=== PATIENT | female | born 1950 | race Caucasian/White ===

== ENCOUNTER 2018-07-17 16:36 | Inpatient (IN) | payer OTHER ==
[~2018-07-17] VITALS: Ht 162.6 cm; Wt 65.3 kg
--- NOTE | ~2018-07-17 | EKG ---
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: NESS : 1950 Requested By: Rocky Christian Order Number: [id number] MD: Shon Magaña Measurements Intervals [place] Rate: 147 P: -90 [place]: 107 QRS: 105 QRSD: 86 T: 32 QT: 319 QTc: 499 Interpretive Statements Sinus or ectopic atrial tachycardia Right axis deviation Borderline low voltage, extremity leads Borderline prolonged QT interval No previous ECGs available for comparison Electronically Signed On 07-18-2018 8:11:07 DARKLIGHT INSPECTOR by Shon Magaña [email or web address] <ELECTRONICALLY SIGNED> By: Shon Magaña MD, [facility] 07/18/18 0811 D: [id number] Shon Magaña MD, FACC /EPI
[~2018-07-17 16:36] MED LIST: ATIVAN1 MG PO; CALTRATE-600 W1 EACH PO; CARDIZEM CD180 MG PO; CHEWABLE PRENA1 EACH PO; CHLORDIAZEPOXID10 MG PO; CYMBALTA60 MG PO; DESYREL50 MG PO; FLEXERIL PO; KLONOPIN1 MG PO; ONDANSETRON HCL4 M2 PO; PRAVACHOL20 MG PO; PROVENTIL IH; RESTORIL15 MG PO; VITAMIN B-1100 M2 PO; VITAMIN B-1100 MG PO; ZOLOFT PO; [UNRECOGNIZED DRUG - OTHER]
[2018-07-17] MEDS ORDERED: LEXAPRO20 MG PO (16:57)
[2018-07-17] MEDS ORDERED: GABAPENTIN 100100 MG PO (16:57)
[2018-07-17] MEDS ORDERED: REVIA 50 MG TAB50 M1 PO (16:58)
[2018-07-17 16:59] LABS: URINE BILIRUBIN NEGATIVE (Negative); URINE BLOOD TRACE (Negative); URINE CLARITY CLEAR; URINE COLOR YELLOW; URINE GLUCOSE-RANDOM* NEGATIVE (Negative); URINE KETONES 1+ (Negative); URINE LEUKOCYTES-REFLEX TRACE (Negative); URINE NITRITE-REFLEX NEGATIVE (Negative); URINE PROTEIN (DIPSTICK) NEGATIVE (Negative); URINE UROBILINOGEN 0.2 E.U./dl (0.2-1.0)
[2018-07-17] MEDS ORDERED: RESTORIL15 MG PO (16:59)
[2018-07-17 17:06] LABS: AMP/METHAMP Negative (Negative); BARBITURATES Negative (Negative); BENZODIAZEPINES POSITIVE (Negative); COCAINE Negative (Negative); METHADONE Negative (Negative); OPIATES Negative (Negative); PCP Negative (Negative)
[2018-07-17 17:24] LABS: ABSOLUTE NEUTROPHILS 2.1 thou/uL (1.4-8.2); BASOPHILS 1.1 % (0.0-2.0); EOSINOPHILS 2.5 % (0.0-3.0); HEMATOCRIT 36.7 % (37.0-47.0); HEMOGLOBIN 12.4 gm/dL (12.0-15.0); LYMPHOCYTES 32.4 % (24.0-44.0); MCH 32.3 pg (26.0-34.0); MCHC 33.9 g/dL (28.0-37.0); MCV 95.2 fL (80.0-100.0); MONOCYTES 5.4 % (1.0-8.0); POLYS 58.6 % (36.0-66.0); RBC 3.85 mil/uL (4.20-5.00); RDW 14.2 % (10.5-14.5); WBC 3.5 thou/uL (4.0-11.0)
[2018-07-17 17:27] LABS: CALCIUM 9.8 mg/dL (8.5-10.1); CREATININE 0.9 mg/dL (0.6-1.0); POTASSIUM 4.9 mmol/L (3.5-5.1)
[2018-07-17 17:33] LABS: ALBUMIN 3.8 g/dL (3.4-5.0); MAGNESIUM 2.3 mg/dL (1.8-2.4); TOTAL BILIRUBIN 0.5 mg/dL (<0.1-1.0); TOTAL PROTEIN 7.8 g/dL (6.4-8.2)
[2018-07-17 18:18] LABS: PLATELET COUNT 25 thou/uL (150-400)
[2018-07-17 21:11] VITALS: BP 126/60
[2018-07-17 21:46] VITALS: BP 140/68
[2018-07-17 23:14] VITALS: BP 159/78
[2018-07-17 23:22] LABS: PHOSPHORUS 4.3 mg/dL (2.5-4.9)
[2018-07-17 23:50] LABS: FOLIC ACID 23.1 ng/mL (8.6-58.9)
[2018-07-18 04:05] LABS: HEMATOCRIT 33.7 % (37.0-47.0); HEMOGLOBIN 11.8 gm/dL (12.0-15.0); MCH 32.9 pg (26.0-34.0); MCHC 35.1 g/dL (28.0-37.0); MCV 93.7 fL (80.0-100.0); RBC 3.6 mil/uL (4.20-5.00); RDW 13.7 % (10.5-14.5); WBC 3.7 thou/uL (4.0-11.0)
[2018-07-18 04:21] LABS: ANION GAP 9 mmol/L (7-16); BUN 11 mg/dL (7-18); CALCIUM 8.1 mg/dL (8.5-10.1); CHLORIDE 103 mmol/L (98-107); CHOLESTEROL 254 mg/dL (<200); CO2 29 mmol/L (21-32); CREATININE 0.7 mg/dL (0.6-1.0); GLUCOSE 103 mg/dL (74-106); HDL CHOLESTEROL 100 mg/dL (>40); LDL CHOLESTEROL 145 mg/dL (<100); SODIUM 141 mmol/L (136-145); TC:HDL 2.5 Ratio (Not establshd); TRIGLYCERIDE 45 mg/dL (<150); VLDL 9 mg/dL (<40)
[2018-07-18 04:23] LABS: POTASSIUM 3.9 mmol/L (3.5-5.1); SERUM ASSESSMENT Clear
[2018-07-18 05:10] VITALS: BP 143/85
[2018-07-18 07:29] VITALS: BP 134/84
[2018-07-18 11:51] VITALS: BP 122/74
[2018-07-18 15:56] VITALS: BP 145/98
[2018-07-18 17:43] VITALS: BP 153/92
[2018-07-18 20:32] VITALS: BP 137/89
[2018-07-19 04:00] VITALS: BP 125/76
[2018-07-19 06:32] LABS: CREATININE 0.8 mg/dL (0.6-1.0); MAGNESIUM 2.1 mg/dL (1.8-2.4); PHOSPHORUS 3.8 mg/dL (2.5-4.9); POTASSIUM 3.8 mmol/L (3.5-5.1)
[2018-07-19 07:10] VITALS: BP 147/80
[2018-07-19 11:38] VITALS: BP 140/86
[2018-07-19 16:25] VITALS: BP 140/78
[2018-07-19 20:05] VITALS: BP 130/85
[2018-07-20 04:10] VITALS: BP 121/70
[2018-07-20 07:36] VITALS: BP 117/73
[2018-07-20 12:33] VITALS: BP 141/87
[2018-07-20 16:21] VITALS: BP 125/75
[2018-07-20 19:38] VITALS: BP 127/62
[2018-07-21 04:40] VITALS: BP 120/68
[2018-07-21 07:41] VITALS: BP 113/61
[2018-07-21 11:31] VITALS: BP 128/76
[2018-07-21 13:30] VITALS: BP 128/76
== END 2018-07-21 13:43 | disposition home or self-care (01) | DRG 897 ==
LOC: ER 16:36 → EROBS 21:19 → 3W 21:19
PROVIDERS: Nurse Practitioner Family; Physician Assistant
DX: F10.120 Alcohol abuse with intoxication, uncomplicated (principal); R00.0 Tachycardia, unspecified; F32.9 Major depressive disorder, single episode, unspecified; E78.5 Hyperlipidemia, unspecified; J45.909 Unspecified asthma, uncomplicated; Z87.828 Personal history of other (healed) physical injury and trauma; Z79.899 Other long term (current) drug therapy; Z88.6 Allergy status to analgesic agent; Z88.1 Allergy status to other antibiotic agents; Z88.0 Allergy status to penicillin; Z88.2 Allergy status to sulfonamides; Z88.8 Allergy status to other drugs, medicaments and biological substances; Z80.49 Family history of malignant neoplasm of other genital organs; Z82.49 Family history of ischemic heart disease and other diseases of the circulatory system; Z71.41 Alcohol abuse counseling and surveillance of alcoholic
CPT/HCPCS: 10879

== ENCOUNTER → 2020-03-15 | Outpatient (CLI) | payer OTHER ==
[~2020-03-15] MED LIST changes: +GABAPENTIN 100100 MG PO; +LEXAPRO20 MG PO; +REVIA 50 MG TAB50 M1 PO
== END ==
LOC: BC 08:35
PROVIDERS: ATTEND Internal Medicine
DX: Z12.31 Encounter for screening mammogram for malignant neoplasm of breast (principal)

== ENCOUNTER → 2020-03-21 | Outpatient (CLI) | payer OTHER | LOC: SJCVC 14:38 | PROVIDERS: ATTEND Internal Medicine Cardiovascular Disease | DX: R00.0 Tachycardia, unspecified (principal); R94.31 Abnormal electrocardiogram [ECG] [EKG]; I25.10 Atherosclerotic heart disease of native coronary artery without angina pectoris; E78.00 Pure hypercholesterolemia, unspecified; J45.909 Unspecified asthma, uncomplicated; Z79.899 Other long term (current) drug therapy; Z82.49 Family history of ischemic heart disease and other diseases of the circulatory system; Z87.891 Personal history of nicotine dependence ==

== ENCOUNTER → 2020-04-22 | Outpatient (CLI) | payer OTHER | LOC: SJCVCIMAG 09:38 | PROVIDERS: ATTEND Internal Medicine Cardiovascular Disease | DX: I08.1 Rheumatic disorders of both mitral and tricuspid valves (principal) ==

== ENCOUNTER → 2020-05-11 | Outpatient (CLI) | payer OTHER | LOC: SJCVCIMAG 04-13 14:19 | PROVIDERS: ATTEND Internal Medicine Cardiovascular Disease | DX: I47.1 Supraventricular tachycardia (principal); I25.10 Atherosclerotic heart disease of native coronary artery without angina pectoris; E78.5 Hyperlipidemia, unspecified; E78.00 Pure hypercholesterolemia, unspecified; J45.909 Unspecified asthma, uncomplicated; Z87.891 Personal history of nicotine dependence; Z79.899 Other long term (current) drug therapy ==

== ENCOUNTER → 2020-05-16 | Outpatient (CLI) | payer OTHER | LOC: CAT 09:23 | PROVIDERS: ATTEND Internal Medicine Cardiovascular Disease | DX: Z13.6 Encounter for screening for cardiovascular disorders (principal); E78.00 Pure hypercholesterolemia, unspecified; I25.10 Atherosclerotic heart disease of native coronary artery without angina pectoris ==

== ENCOUNTER → 2020-05-23 | Outpatient (CLI) | payer OTHER | LOC: SJCVC 14:18 | PROVIDERS: ATTEND Internal Medicine Cardiovascular Disease | DX: I47.1 Supraventricular tachycardia (principal) ==

== ENCOUNTER → 2020-05-24 | Outpatient (CLI) | payer OTHER | LOC: LAB 07:43 | PROVIDERS: ATTEND Internal Medicine Cardiovascular Disease | DX: Z01.812 Encounter for preprocedural laboratory examination (principal); Z20.828 Contact with and (suspected) exposure to other viral communicable diseases ==

== ENCOUNTER 2020-05-27 06:36 | Inpatient (IN) | payer OTHER ==
[~2020-05-27] VITALS: Ht 162.6 cm; Wt 73.5 kg
[2020-05-27] VITALS (24 sets, daily range): BP systolic 79–113; BP diastolic 35–76
--- NOTE | ~2020-05-27 | EKG ---
[facility] [place] [address] ELECTROCARDIOGRAM REPORT Name: MARLENI SELBY Room #: 215-[facility] M.R.#: [id number] Admission: 05/27/20 Attend Phys: Mani De La Paz MD Discharge: Date of : 52 Report #: [id number] THIS REPORT FOR: cc: Malvin Chapa MD, Ammar MD Epiphany,Gwen CONTRERAS ~ THIS REPORT FOR: //name// [facility] Test Date: 2020-05-27 Test Time: 17:58:45 Pat Name: MARLENI SELBY Department: Room: 215 Gender: F Truck Technician: Imani JOHNSON : 1950 Requested By: Mani De La Paz Order Number: [id number] MD: Measurements Intervals [place] Rate: 144 P: [place]: QRS: 109 QRSD: 85 T: -20 QT: 298 QTc: 461 Interpretive Statements Junctional tachycardia Right axis deviation Borderline low voltage, extremity leads Repolarization abnormality, prob rate related Compared to ECG 07/17/2018 17:04:01 Junctional tachycardia now present Early repolarization now present [email or web address] By: 1758 1758 Epiphany [place]iph[place], [place] /EPI
[2020-05-27] MEDS ORDERED: BACLOFEN 10MG T10 MG PO (07:27)
[2020-05-27] MEDS ORDERED: SUPER THERAVIT1 EACH PO (07:28)
[2020-05-27] MEDS ORDERED: BREO ELLIPTA 11 EACH INH (07:30)
[2020-05-27 07:31] LABS: ABSOLUTE NEUTROPHILS 2.7 thou/uL (1.4-8.2); BASOPHILS 1.2 % (0.0-2.0); EOSINOPHILS 7.2 % (0.0-3.0); HEMATOCRIT 33.1 % (37.0-47.0); HEMOGLOBIN 11.3 gm/dL (12.0-15.0); LYMPHOCYTES 26.3 % (24.0-44.0); MCH 31.5 pg (26.0-34.0); MCHC 34.1 g/dL (28.0-37.0); MCV 92.3 fL (80.0-100.0); MONOCYTES 9.7 % (1.0-8.0); PLATELET COUNT 201 thou/uL (150-400); POLYS 55.6 % (36.0-66.0); RBC 3.59 mil/uL (4.20-5.00); RDW 13.5 % (10.5-14.5); WBC 4.8 thou/uL (4.0-11.0)
[2020-05-27] MEDS ORDERED: TRAZODONE HCL100 MG PO (07:31)
[2020-05-27 07:43] LABS: CALCIUM 9.4 mg/dL (8.5-10.1); CREATININE 1.2 mg/dL (0.6-1.0); POTASSIUM 4.1 mmol/L (3.5-5.1)
[2020-05-27 07:51] LABS: ALBUMIN 3.6 g/dL (3.4-5.0); APTT 25.8 Seconds (24.5-32.8); PROTIME 9.7 Seconds (9.3-11.4); TOTAL BILIRUBIN 0.3 mg/dL (0.2-1.0); TOTAL PROTEIN 7.1 g/dL (6.4-8.2)
--- NOTE | 2020-05-27 10:58 | 2DMMODE ---
[address] [address] 2 D/M-MODE ECHOCARDIOGRAM Name: MARLENI SELBY Room #: REG [facility]#: [id number] Admission: 05/27/20 Attend Phys: Mani De La Paz MD Discharge: Date of : 52 Report #: [id number] THIS REPORT FOR: cc: Malvin Chapa MD, Ammar MD Park, Jin S. MD ~ APPROVED REPORT Study performed: 05/27/2020 10:23:55 EXAM: Comprehensive 2D, Doppler, and color-flow Echocardiogram Patient Location: lab Status: stat BSA: 1.76 BP: 90/53 mmHg Other Information Study Quality: Technically Limited Indications STAT to rule out pericardial effusion Left Ventricle The left ventricle is normal size. There is normal left ventricular wall thickness. The left ventricular systolic function is normal. The left ventricular ejection fraction is within the normal range. LVEF is >55%. Right Ventricle The right ventricle is normal size. The right ventricular systolic function is normal. Atria Left atrium is at the upper limits of normal. Right atrium is dilated. Aortic Valve The aortic valve is normal in structure. Mitral Valve The mitral valve is normal in structure. [address] [address] 2 D/M-MODE ECHOCARDIOGRAM Name: MARLENI SELBY Room #: REG [facility]#: [id number] Admission: 05/27/20 Attend Phys: Mani De La Paz Discharge: Date of : 52 Report #: [id number] Tricuspid Valve The tricuspid valve is normal in structure. Pericardium There is no pericardial effusion. <Conclusion> The left ventricle is normal size. There is normal left ventricular wall thickness. The left ventricular systolic function is normal. The right ventricle is normal size. The aortic valve is normal in structure. The mitral valve is normal in structure. There is no pericardial effusion. <ELECTRONICALLY SIGNED> By: Raymundo Quinn MD 05/27/20 1058 1058 Raymundo Quinn MD /INF
--- NOTE | 2020-05-27 17:04 | NUR ---
PT ADMITED FROM GREETING CARD WRITER. ADMISSION HX AND ASSESSMENT COMPLETED. VSS. ST ON TELE. PRN PAIN MED GIVEN FOR RIGHT EYE PAIN. DR. SANCHES AWARE. RIGHT AND LEFT GROIN SITE C/D/I. NO HEMATOMA NOTED.
--- NOTE | 2020-05-27 18:28 | NUR ---
ENTRY DRIVER OPERATOR activated-see flowsheet
[2020-05-28] VITALS (8 sets, daily range): BP systolic 88–124; BP diastolic 41–83
--- NOTE | 2020-05-28 02:38 | NUR ---
pt resting in no acute distress.s/pablation.bilateral groins dressing cdi w/o hemataoma.pt was tachycardiac on monitor at the beginning of the shift, on cardizem at 5ml/hr.hr was bouncing between 115 to 130s bpm.b/p systolic noted to be trending down from 100 systolics to 70s.pt not symptomatic and laying down in bed in no distress.Dr Quinn was contacted,orders given to titrate cardiazem to 2.5ml/hr and give a bolus of NS 250ml.Bolus was given and around 2220 HR trended down to 59 bmp.cardizem was turned off.on monitor SB w/1deg AVB.Blood pressure improved a little with bolus 94/50.currently hr on monitor in 80s-90s bmp.Pt denies any needs at this time.will cont to monitor pt progress as per poc.
--- NOTE | 2020-05-28 17:46 | NUR ---
PT ALERT AND ORIENTED. DENIED HAVING SOB OR CHEST PAIN. REPORT FEELING MUCH BETTER TODAY. SEEN BY DR. QURESHI. NEW ORDERS NOTED. NO CONCERNS AT THIS TIME.
[2020-05-29 03:30] VITALS: BP 117/68
--- NOTE | 2020-05-29 05:12 | NUR ---
ASSESSMENT DOCUMENTED.PT BEEN RESTING IN NO ACUTE DISTRESS.A/OX4.VSS.SR WITH PACS.DENIES ANY NEEDS AT THIS TIME.NO CONCERNS VOICED AT THIS TIME.
[2020-05-29 08:10] VITALS: BP 116/46
[2020-05-29 16:46] VITALS: BP 119/77
--- NOTE | 2020-05-29 17:53 | NUR ---
ASSESSMENT CHARTED. PT ALERT AND ORIENTED. VSS. REPORT FEELING MUCH BETTER TODAY. DENIED HAVING PAIN OR DISCOMFORT. SR/ST ON TELE. WILL CONTINUE WITH PLAN OF CARE.
[2020-05-29 19:48] VITALS: BP 119/66
[2020-05-30 04:38] VITALS: BP 117/68
--- NOTE | 2020-05-30 07:40 | NUR ---
PT RESTING QUIETLY IN ROOM THRU THE NOC, HR REMAINS JUNCTIONAL WITH RATE 95 TO 120, NO C/O PAIN, BILAT GROINS CDI, PT UP ADLIB TO BR, REPORT GIVEN TO NEXT SHIFT TO CON'T PPOC.
[2020-05-30 08:27] VITALS: BP 120/61
[2020-05-30] MEDS ORDERED: FLECAINIDE ACET50 M2 PO (08:53)
[2020-05-30] MEDS ORDERED: TOPROL XL25 MG PO (08:53)
--- NOTE | 2020-05-30 09:37 | EKG ---
[facility] [place] [address] ELECTROCARDIOGRAM REPORT Name: MARLENI SELBY Room #: 215-P ADM IN M.R.#: [id number] Admission: 05/27/20 Attend Phys: Mani De La Paz MD Discharge: Date of : 52 Report #: [id number] THIS REPORT FOR: cc: Malvin Chapa MD, Ammar MD Lammoglia,Jarett Morelos MD ~ THIS REPORT FOR: //name// [facility] Test Date: 2020-05-30 Test Time: 08:33:18 Pat Name: MARLENI SELBY Department: Room: 215 P Gender: F Rn Pediatric: ELSA : 1950 Requested By: Mani De La Paz Order Number: [id number] MD: Jarett Gonsalez Measurements Intervals [place] Rate: 102 P: [place]: QRS: 53 QRSD: 92 T: -6 QT: 340 QTc: 443 Interpretive Statements Junctional tachycardia Nonspecific ST-T wave change Compared to ECG 05/27/2020 17:58:45 Junctional tachycardia now present Electronically Signed On 05-30-2020 9:36:56 CDT by Jarett Gonsalez [email or web address] <ELECTRONICALLY SIGNED> By: Jarett Gonsalez MD 05/30/2036 2 2 Jarett Gonsalez MD /EPI
[2020-05-30 12:00] VITALS: BP 120/61
--- NOTE | 2020-05-30 12:40 | NUR ---
ASSUMED CARE AT SHIFT CHANGE, ALERT AND ORIENTED X4. VSS AND AFEBRILE. HOLTER MONITOR DELIVERED TO PATEINT AND INSTRUCTIONS GIVEN WELL. DISCHARGE AND MEDICATIONS GIVEN TO PATIENT AND SHE VERBALIZED UNDERSTANDING.
[2020-05-30 12:58] VITALS: BP 98/49
[2020-05-30 13:00] VITALS: BP 115/71
== END 2020-05-30 13:15 | disposition home or self-care (01) | DRG 274 ==
LOC: CATH 06:36 → 2N 07:17 → CATH 09:27 → 2N 05-30 13:15
PROVIDERS: ADMIT Internal Medicine Cardiovascular Disease; ATTEND Internal Medicine Cardiovascular Disease
PROC: 02583ZZ Destruction of Conduction Mechanism, Percutaneous Approach (ICD-10-PCS; principal; 2020-05-27)
DX: I47.1 Supraventricular tachycardia (principal); I97.790 Other intraoperative cardiac functional disturbances during cardiac surgery; F41.9 Anxiety disorder, unspecified; F32.9 Major depressive disorder, single episode, unspecified; Z87.891 Personal history of nicotine dependence; Z80.8 Family history of malignant neoplasm of other organs or systems; Z82.49 Family history of ischemic heart disease and other diseases of the circulatory system; Z79.899 Other long term (current) drug therapy; I44.2 Atrioventricular block, complete
CPT/HCPCS: 10081; 62110; 62900; 70005

== ENCOUNTER → 2020-06-21 | Outpatient (CLI) | payer OTHER ==
[~2020-06-21] MED LIST changes: +BACLOFEN 10MG T10 MG PO; +BREO ELLIPTA 11 EACH INH; +FLECAINIDE ACET50 M2 PO; +SUPER THERAVIT1 EACH PO; +TOPROL XL25 MG PO; +TRAZODONE HCL100 MG PO
== END ==
LOC: SJCVC 11:34
PROVIDERS: ATTEND Internal Medicine Cardiovascular Disease
DX: I44.0 Atrioventricular block, first degree (principal); I47.1 Supraventricular tachycardia

== ENCOUNTER → 2020-07-07 | Outpatient (CLI) | payer OTHER | LOC: LAB 09:06 | PROVIDERS: ATTEND Internal Medicine Cardiovascular Disease | DX: Z20.828 Contact with and (suspected) exposure to other viral communicable diseases (principal) ==

== ENCOUNTER → 2020-07-11 | Outpatient (CLI) | payer OTHER ==
[~2020-07-11] VITALS: Ht 162.6 cm; Wt 72.1 kg
[2020-07-11 07:26] VITALS: BP 112/44
[2020-07-11 07:34] LABS: ABSOLUTE NEUTROPHILS 2.5 thou/uL (1.4-8.2); BASOPHILS 1.2 % (0.0-2.0); EOSINOPHILS 3.6 % (0.0-3.0); HEMATOCRIT 28.7 % (37.0-47.0); HEMOGLOBIN 9.7 gm/dL (12.0-15.0); LYMPHOCYTES 22.9 % (24.0-44.0); MCHC 33.7 g/dL (28.0-37.0); PLATELET COUNT 196 thou/uL (150-400); POLYS 60.3 % (36.0-66.0); RBC 3.23 mil/uL (4.20-5.00); RDW 13.2 % (10.5-14.5); WBC 4.1 thou/uL (4.0-11.0)
[2020-07-11 07:40] LABS: CALCIUM 9.4 mg/dL (8.5-10.1); CREATININE 1.2 mg/dL (0.6-1.0); POTASSIUM 3.9 mmol/L (3.5-5.1)
[2020-07-11 07:47] LABS: ALBUMIN 3.6 g/dL (3.4-5.0); TOTAL BILIRUBIN 0.3 mg/dL (0.2-1.0); TOTAL PROTEIN 6.7 g/dL (6.4-8.2)
[2020-07-11 07:50] LABS: PROTIME 9.7 Seconds (9.3-11.4)
[2020-07-11 07:55] LABS: APTT 20.1 Seconds (24.5-32.8)
--- NOTE | 2020-07-12 12:42 | P ---
[facility] [place] [address] PROCEDURE REPORT Name: MARLENI SELBY Room #: REG [facility]#: [id number] Admission: 07/11/20 Attend Phys: Mani De La Paz MD Discharge: Date of : 52 Report #: [id number] THIS REPORT FOR: cc: Jenny Krueger MD,Jenny De La Paz,Mani Edge MD ~ CC: Mani Krueger DATE OF SERVICE: 07/11/2020 EP STUDY PREOPERATIVE DIAGNOSIS: Supraventricular tachycardia. POSTOPERATIVE DIAGNOSIS: Supraventricular tachycardia. HISTORY: The patient is a 69-year-old female here for repeat ablation after she had a recent attempted ablation of atrial tachycardia arising from close to the slow pathway location that resulted in transient heart block. She is here for repeat EP study. ANESTHESIA: The patient underwent MAC anesthesia with no anesthesia related complications. DESCRIPTION OF PROCEDURE: The patient underwent informed consent. We discussed the details of the procedure including the risks, which include but not limited to bleeding, infection, vascular damage, cardiac perforation, stroke, GA as well as damage to the conduction system requiring permanent pacemaker. We discussed that if she does require permanent pacemaker today due to the ablation. The risks of this include bleeding, infection, pneumothorax and possible cardiac perforation. She understands this and is willing to proceed. The patient was brought to EP laboratory in fasting and sedated state, prepped and draped in a sterile fashion. I obtained access to the right femoral vein x 3 and the left femoral vein x 1. I placed three 6-Vincentian short sheaths in the right femoral vein and a 7-Vincentian short sheath in the left femoral vein. Under fluoroscopy, I placed 3 quadripolar catheters at the HRA, His and RV position and the Decapolar catheter into the coronary sinus. A basic EP study was performed. At baseline, the patient was in sinus rhythm with sinus cycle length of 800 milliseconds, CT interval 250 milliseconds, QRS duration 120 milliseconds, QT interval 420 milliseconds, AH interval 240 milliseconds, HV interval 35 milliseconds. Atrial burst pacing was performed and AV block was noted at 300 milliseconds. AV ester ERP was noted at 420 milliseconds at a [address] cycle length. No SVT was induced. Isoproterenol was initiated at 1 mcg per minute and AV block was noted at 360. Atrial burst [facility] [address] [place] [address] PROCEDURE REPORT Name: SOLAMARLENI L Room #: REG [facility]#: [id number] Admission: 07/11/20 Attend Phys: Mani De La Paz MD Discharge: Date of : 52 Report #: [id number] pacing was aggressively performed. The patient did go into atrial fibrillation, which required a 200 joule synchronized cardioversion. Additional testing was performed on 3 mcg of isoproterenol, AV block was noted at 340 msec. Single atrial extrastimuli were delivered and at 300 milliseconds at a [address] cycle length. I did get one episode of SVT that was earliest at the His bundle, had a tachycardia cycle length of 380 milliseconds and was 10 beats in duration and terminated with a ventricular signal. I continued testing and increased the isoproterenol to 4 mcg per minute. Ventricular pacing was performed, but there is no evidence of VA conduction and there was no VA conduction at baseline prior to Isuprel as well. Again, single atrial extrastimuli delivered at 360 milliseconds ____ basic drive cycle length. The patient had a short run of SVT, lasting about 10 beats, again looked like the initial tachycardia and terminated with a ventricular signal. Again, I did not get the focal atrial tachycardia to initiate throughout this procedure. At the time of last procedure, this arrhythmia was incessant. Given that I could not induce, I could not map the tachycardia nor perform ablation. As such, catheters and sheaths were pulled. Hemostasis obtained and the patient awoke neurologically and hemodynamically intact. No complications and no significant bleeding. CONCLUSIONS: 1. Normal SA ester function. 2. Normal AV ester function. 3. Normal His-Purkinje function. 4. No induction of atrial tachycardia with and without isoproterenol infusion. <ELECTRONICALLY SIGNED> By: Mani De La Paz MD 07/12/20 1242 1322 1438 Mani De La Paz MD /nt
== END ==
LOC: CATH 06:30
PROVIDERS: ATTEND Internal Medicine Cardiovascular Disease
DX: I47.1 Supraventricular tachycardia (principal); E78.5 Hyperlipidemia, unspecified; J45.909 Unspecified asthma, uncomplicated; F32.9 Major depressive disorder, single episode, unspecified; Z82.49 Family history of ischemic heart disease and other diseases of the circulatory system; Z98.890 Other specified postprocedural states; Z79.899 Other long term (current) drug therapy; Z88.0 Allergy status to penicillin; Z88.2 Allergy status to sulfonamides
CPT/HCPCS: 62110; 62900; 70005

== ENCOUNTER → 2020-10-12 | Outpatient (CLI) | payer OTHER | LOC: SJCVC 13:30 | PROVIDERS: ATTEND Internal Medicine Cardiovascular Disease | DX: I47.1 Supraventricular tachycardia (principal); R94.31 Abnormal electrocardiogram [ECG] [EKG]; I44.5 Left posterior fascicular block; I44.0 Atrioventricular block, first degree; E78.5 Hyperlipidemia, unspecified; J45.909 Unspecified asthma, uncomplicated; Z98.890 Other specified postprocedural states; Z88.0 Allergy status to penicillin; Z88.8 Allergy status to other drugs, medicaments and biological substances; Z79.899 Other long term (current) drug therapy; Z87.891 Personal history of nicotine dependence; Z82.49 Family history of ischemic heart disease and other diseases of the circulatory system ==

== ENCOUNTER → 2020-11-09 | Outpatient (CLI) | payer OTHER | LOC: SJCVC 14:03 | PROVIDERS: ATTEND Internal Medicine Cardiovascular Disease | DX: I44.0 Atrioventricular block, first degree (principal); I47.1 Supraventricular tachycardia; E78.5 Hyperlipidemia, unspecified; Z79.899 Other long term (current) drug therapy; Z87.891 Personal history of nicotine dependence ==

== ENCOUNTER → 2021-04-27 | Outpatient (CLI) | payer OTHER | LOC: BC 11:14 | PROVIDERS: ATTEND Internal Medicine | DX: Z12.31 Encounter for screening mammogram for malignant neoplasm of breast (principal) ==

== ENCOUNTER → 2021-05-11 | Outpatient (CLI) | payer OTHER | LOC: SJCVC 14:02 | PROVIDERS: ATTEND Internal Medicine Cardiovascular Disease | DX: I44.0 Atrioventricular block, first degree (principal); I47.1 Supraventricular tachycardia; E78.5 Hyperlipidemia, unspecified; J45.909 Unspecified asthma, uncomplicated; F41.9 Anxiety disorder, unspecified; F32.9 Major depressive disorder, single episode, unspecified; Z88.2 Allergy status to sulfonamides; Z88.0 Allergy status to penicillin; Z88.5 Allergy status to narcotic agent; Z88.6 Allergy status to analgesic agent; Z88.1 Allergy status to other antibiotic agents; Z79.899 Other long term (current) drug therapy; Z87.891 Personal history of nicotine dependence ==